=== PATIENT | male | born 1960 | race Caucasian/White ===

== ENCOUNTER 2017-11-12 18:21 | Emergency (ER) | payer BC, OTHER ==
[2017-11-12] MEDS ORDERED: Ketorolac 0.5% Ophth Soln 5 ML Bottle EYERT ONE (19:07)
[2017-11-12] MEDS ORDERED: Ciprofloxacin 0.3% Ophth Soln 2.5 ML Bottle EYERT ONE (19:08)
[2017-11-12] MEDS ORDERED: Acetaminophen/oxyCODONE 325-5 MG Tab PO ONE (19:09)
--- NOTE | 2017-11-12 19:17 | EDM.PDOC ---
ED HPI GENERAL MEDICAL PROBLEM - General Chief Complaint: Eye Problems Stated Complaint: EYE PROBLEMS Time Seen by Provider: 11/12/17 18:55 Source of Information: Reports: Patient, Family (spouse) History Limitations: Reports: No Limitations - History of Present Illness INITIAL COMMENTS - FREE TEXT/NARRATIVE: 57-year-old male presents the ED with severe right eye pain with excessive tearing since about 1400 hrs. today. 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 a form of ultraviolet radiation exposure and grinding metal. He was using the plasma cutter about 10:00 this morning. He didn't believe that he get any foreign body in his eye. I start to hurt anterior excessively around 1400 hrs. and is only continued to worsen since that time. He has not worked contact lenses or eyeglasses except for reading. Pain is described as burning sharp stabbing and severely photophobic. He has rinsed his eye with eye wash at work 3 with some transient improvement. Never did identify any foreign bodies or remove anything from the eye. Onset: Today Onset Date: 11/12/17 Onset Time: 14:00 Duration: Hour(s):, Getting Worse Location: Reports: Face Quality: Reports: Burning, Sharp, Stabbing, Other Severity: Severe (Rates pain 10 out of 10.) Improves with: Reports: Rest Worsens with: Reports: Other (Keeping the eye closed. Exposure to light) Context: Reports: Other (Exposure to ultraviolet radiation well using a plasma cutter.). Denies: Activity, Exercise, Lifting, Sick Contact, Trauma Associated Symptoms: Reports: No Other Symptoms. 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 [No Known Home Meds] 11/12/17 [History] Past Medical History HEENT History: Reports: Cataract Cardiovascular History: Reports: Hypertension, Pacemaker - Past Surgical History HEENT Surgical History: Reports: Cataract Surgery, LASIK Social & Family History - Tobacco Use Smoking Status *Q: Never Smoker Second Hand Smoke Exposure: Yes - Caffeine Use Caffeine Use: Reports: None - Recreational Drug Use Recreational Drug Use: No - Living Situation & Occupation Living situation: Reports: Occupation: Employed ED ROS GENERAL - Review of Systems Review Of Systems: See Below Constitutional: Reports: No Symptoms HEENT: Reports: Eye Pain (Severe right side with excessive tearing. Started about 1400 hrs. this afternoon), Other (Nasal congestion from excessive tearing. ) Respiratory: Reports: No Symptoms Cardiovascular: Reports: No Symptoms Endocrine: Reports: No Symptoms GI/Abdominal: Reports: No Symptoms : Reports: Other (Nocturia 2) Musculoskeletal: Reports: Back Pain Skin: Reports: No Symptoms Neurological: Reports: No Symptoms (Occasional problems with low back pain) Psychiatric: Reports: No Symptoms Hematologic/Lymphatic: Reports: No Symptoms Immunologic: Reports: No Symptoms ED EXAM GENERAL W FULL EYE - Physical Exam Exam: See Below Exam Limited By: No Limitations General Appearance: Alert, Moderate Distress (Speaks with right eye completely closed and it's been obviously excessively tearing.) Eye Exam: Right Eye: Conjunctival Injection (Moderate), Corneal Abrasion (Large C square superficial abrasion mid cornea), Bilateral Eye: PERRL, Other ( Excessive pitting of the cornea from ultraviolet radiation almost the entire lower two thirds of the cornea is involved particularly laterally.) Eyelids: Right: Lid Everted for Exam (No foreign body identified. Slightly erythematous.) Conjunctiva & Sclera: Right: Injected (Moderately diffusely injected) Extraocular Movements: Bilateral: Intact Pupils: Normal Accommodation Pupillary Size: Bilateral: 5 mm Pupillary Reaction: Bilateral: Brisk Anterior Chamber: Right: Normal Appearance Course - Vital Signs Last Recorded V/S: Last Vital Signs Temp 36.8 C 11/12/17 18:33 Pulse 71 11/12/17 18:33 Resp 18 11/12/17 18:33 BP 136/94 H 11/12/17 18:33 Pulse Ox 98 11/12/17 18:33 - Orders/Labs/Meds Meds: Medications Discontinued Medications Generic Name Dose Route Start Last Admin Trade Name Freq PRN Reason Stop Dose Admin Ciprofloxacin 2.5 ml 11/12/17 19:08 11/12/17 19:13 Ciloxan 0.3% Ophth Soln EYERT 11/12/17 19:09 2 drop ONETIME ONE Administration Ketorolac Tromethamine 2.5 ml 11/12/17 19:07 11/12/17 19:15 Acular 0.5% Ophth Soln EYERT 11/12/17 19:08 2 drop ONETIME ONE Administration Oxycodone/Acetaminophen 2 tab 11/12/17 19:09 11/12/17 19:13 Percocet 325-5 Mg PO 11/12/17 19:10 2 tab ONETIME ONE Administration - Radiology Interpretation Free Text/Narrative:: 57-year-old male presents to the ED with painful right eyes since about 1400 hrs. today. 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 Did never did identify any foreign bodies in his eye. He was doing wearing protective eye glasses. He usually only uses glasses to read. On examination the conjunctiva is markedly and diffusely injected. No foreign bodies were identified on a eversion of the upper lid or lower lid and no corneal foreign bodies identified either. He received complete relief of pain after proparacaine topical eyedrops were applied. Slit-lamp examination reveals severe pitting of the lower two thirds of the cornea particularly laterally compatible with ultraviolet radiation vázquez. There is also a large central 7 mm x 7 mm square superficial corneal abrasion from rubbing the eyes excessively. Treatment will be ketorolac eyedrops 2 drops to the right eye every 6 hours as needed for the next 24 hours to relieve pain and inflammation. Cipro eyedrops 2 drops every 8 hours 2 days to prevent secondary infection. Percocet tabs 2 5/3 /25 milligrams strength at bedtime tonight to help him sleep. I will be double patched closed and taken off only to apply drops every 6 hours. Note given to excuse him from the workplace tomorrow. This I will take at least 24 hours to completely heal. Departure - Departure Time of Disposition: 19:09 Disposition: Home, Self-Care 01 Condition: Fair Clinical Impression: Exposure to welding light (arc), initial encounter Corneal abrasion Qualifiers: Encounter type: initial encounter Laterality: right Qualified Code(s): S05.01XA - Injury of conjunctiva and corneal abrasion without foreign body, right eye, initial encounter - Discharge Information Instructions: Corneal Abrasion, [id number] Referrals: PCP,None [Primary Care Provider] - Forms: ED Department Discharge, ED Return to Work/School Form Care Plan Goals: Evaluation in the ED tonight in regards to painful Rt eye . Examination reveals welding flash vázquez to the Rt cornea with an associated large superficial corneal abrasion. Treatment is to use Ketoralac eye drops -- 2 drops to the Rt eye every 6hrs as needed for pain relief. Likely will need for about 24 hrs. Use antibiotic drops Cipro --2 drops to the Rt eye every 8 hrs for 2 days to prevent ay secondary infection. Eye to be patched closed for the enxt 18 hrs. May then remove. Eye will be sensitive to the light for another day or so. Suggest off work tomorrow to allow the cornea to heal. usually takes about 24hrs or so. Take Percocet tabs x2 at bedtime with a little food in your stomach. Return to eye doctor if not completely back to normal in 36hrs time.
== END 2017-11-12 19:28 | disposition home or self-care (01) ==
LOC: JD.ED 18:21
DX: S05.01XA Injury of conjunctiva and corneal abrasion without foreign body, right eye, initial encounter (principal); I10 Essential (primary) hypertension; W89.0XXA Exposure to welding light (arc), initial encounter
CPT/HCPCS: 99283; A9270

== ENCOUNTER 2021-06-15 10:47 | Emergency (ER) | payer OTHER ==
--- NOTE | 2021-06-15 11:35 | EDM.PDOC ---
ED HPI GENERAL MEDICAL PROBLEM - General Chief Complaint: Respiratory Problem Stated Complaint: POST COVID LIGHT HEADED\SHAKING Time Seen by Provider: 06/15/21 11:00 Source of Information: Reports: Patient, Family ([id number]) History Limitations: Reports: No Limitations - History of Present Illness INITIAL COMMENTS - FREE TEXT/NARRATIVE: Mr. Wang is a very pleasant 69-year-old gentleman who now presents to the ED stating that he was diagnosed with COVID-19 on 05/26/2021. He did not receive any treatment until 10 days later, when he was prescribed a 5-day course of i vermectin. He states that he still has an occasional cough productive of yellowish sputum, and dyspnea on exertion. He saw his PCP this past 06/07/2021, and was prescribed an albuterol MDI and a 5-day course of dexamethasone (he does not recall the dosage). He states that he took the albuterol a few times early after being prescribed it, but none this past 06/13/2021, once yesterday, and none today. The patient states that he developed shakiness, predominantly at nighttime and in the morning, but not during the day, right after starting the dexamethasone, and he sometimes feels lightheaded whenever he is feels shaky, including around 08:45 this morning. He does not feel shaky or lightheaded at this time. Here in the ED, the patient is found to be hemodynamically stable, afebrile, saturating 93% on room air. He appears to be slightly anxious, but in no acute distress. The patient denies having a recent fever, chills, sore throat, ear pain, nasal or sinus congestion, chest pain, palpitations, nausea, vomiting, constipation, diarrhea, abdominal pain, urinary symptoms, recent weight gain or weight loss, recent bloody bowel movements or black bowel movements, recent joint aches, headaches, or rashes. The patient's PCP is Dr. Bhaskar Pepper. His cardiology midlevel is [facility]. He has not received a COVID vaccination, nor an influenza vaccination this season. - Related Data Allergies Allergy/AdvReac Type Severity Reaction Status Date / Time No Known Allergies Allergy Verified 11/12/17 18:36 Home Meds: Home Meds . [No Known Home Meds] 11/12/17 [History] Past Medical History Cardiovascular History: Reports: Other (See Below) (3rd degree AVB, s/p pacer) - Infectious Disease History Infectious Disease History: Reports: Novel Coronavirus (dx'd 05/26/2021) - Past Surgical History HEENT Surgical History: Reports: Cataract Surgery (bilateral), LASIK (bilateral), Oral Surgery (dental extractions) Cardiovascular Surgical History: Reports: Pacer Social & Family History - Tobacco Use Tobacco Use Status *Q: Never Tobacco User - Caffeine Use Caffeine Use: Reports: None - Alcohol Use Alcohol Use History: Yes Alcohol Use Frequency: Socially - Recreational Drug Use Recreational Drug Use: No - Living Situation & Occupation Living situation: Reports: , with Spouse Occupation: Retired ED ROS GENERAL - Review of Systems Review Of Systems: Comprehensive ROS is negative, except as noted in HPI. ED EXAM, GENERAL - Physical Exam Exam: See Below Exam Limited By: No Limitations General Appearance: Alert, WD/WN, No Apparent Distress Eye Exam: Bilateral Eye: EOMI, Normal Inspection Ears: Normal External Exam, Hearing Grossly Normal Nose: Normal Inspection Throat/Mouth: Normal Inspection, Normal Lips, Normal Voice, No Airway Compromise Head: Atraumatic, Normocephalic Neck: Normal Inspection, Full Range of Motion Respiratory/Chest: No Respiratory Distress, Lungs Clear, Normal Breath Sounds, No Accessory Muscle Use, Other (Left chest pacer palpable). No: Decreased Breath Sounds, Crackles, Rhonchi, Wheezing, Stridor, Prolonged Expiration Cardiovascular: Normal Peripheral Pulses, Regular Rate, Rhythm, No Edema, No Gallop, No JVD, No Murmur, No Rub Peripheral Pulses: 3+: Radial (L), Radial (R) GI/Abdominal: Normal Bowel Sounds, Soft, Non-Tender, No Organomegaly, No Distention, No Abnormal Bruit, No Mass Back Exam: Normal Inspection, Full Range of Motion, NT Extremities: Normal Inspection, Normal Range of Motion, No Pedal Edema, Normal Capillary Refill Neurological: Alert, Oriented, Normal Cognition, No Motor/Sensory Deficits Psychiatric: Normal Affect Skin Exam: Warm, Dry, Intact, Normal Color, No Rash Course - Vital Signs Last Recorded V/S: Last Vital Signs Temp 36.6 C 06/15/21 11:03 Pulse 83 06/15/21 11:03 Resp 16 06/15/21 11:03 BP 113/82 06/15/21 11:03 Pulse Ox 93 L 06/15/21 11:03 Orthostatic Blood Pressure [ 112/82 Standing] Orthostatic Blood Pressure [ 106/78 Supine] - Orders/Labs/Meds Orders: Active Orders 24 hr Category Date Time Status Orthostatic Vital Signs [RC] STAT Care 06/15/21 11:25 Active Sodium Chloride 0.9% [Normal Saline] 1,000 ml Med 06/15/21 12:00 Active IV ASDIRECTED Sodium Chloride 0.9% [Normal Saline] 100 ml Med 06/15/21 12:15 Active IV ASDIRECTED Sodium Chloride 0.9% [Saline Flush] Med 06/15/21 12:15 Active 10 ml FLUSH ONETIME PRN Medication Orders Sodium Chloride (Normal Saline) 1,000 mls @ 150 mls/hr IV ASDIRECTED PONCE Last Admin: 06/15/21 13:56 Dose: 150 mls/hr Documented by: GLEN Sodium Chloride (Normal Saline) 100 mls @ 75 mls/hr IV ASDIRECTED [facility] Sodium Chloride (Sodium Chloride 0.9% 10 Ml Syringe) 10 ml FLUSH ONETIME PRN PRN Reason: IV FLUSH Last Admin: 06/15/21 12:41 Dose: 10 ml Documented by: DREW Labs: Laboratory Tests 06/15/21 06/15/21 06/15/21 Range/Units 11:08 11:08 11:08 WBC 8.88 (4.23-9.07) K/mm3 RBC 5.12 (4.63-6.08) M/mm3 Hgb 15.7 (13.7-17.5) gm/dl Hct 46.0 (40.1-51.0) % MCV 89.8 (79.0-92.2) fl MCH 30.7 (25.7-32.2) pg MCHC 34.1 (32.2-35.5) g/dl RDW Std Deviation 43.0 (35.1-43.9) fL Plt Count 314 (163-337) K/mm3 MPV 8.6 L (9.4-12.3) fl Neutrophils % (Manual) 77 H (40-60) % Band Neutrophils % 3 (0-10) % Lymphocytes % (Manual) 11 L (20-40) % Atypical Lymphs % 0 % Monocytes % (Manual) 7 (2-10) % Eosinophils % (Manual) 2 (0.8-7.0) % Basophils % (Manual) 0 L (0.2-1.2) Platelet Estimate Adequate Plt Morphology Comment Normal RBC Morph Comment Normal D-Dimer, Quantitative 1.33 H (0.19-0.50) mg/L Sodium 138 (136-145) mEq/L Potassium 3.8 (3.5-5.1) mEq/L Chloride 105 (98-107) mEq/L Carbon Dioxide 23 (21-32) mEq/L Anion Gap 13.8 (5-15) BUN 10 (7-18) mg/dL Creatinine 1.0 (0.7-1.3) mg/dL Est Cr Clr Drug Dosing 75.60 mL/min Estimated GFR (MDRD) > 60 (>60) mL/min BUN/Creatinine Ratio 10.0 L (14-18) Glucose 97 (70-99) mg/dL Calcium 8.6 (8.5-10.1) mg/dL Magnesium 2.0 (1.8-2.4) mg/dL Total Bilirubin 0.7 (0.2-1.0) mg/dL AST 21 (15-37) U/L ALT 59 (16-63) U/L Alkaline Phosphatase 50 (46-116) U/L Troponin I < 0.017 (0.00-0.056) ng/mL C-Reactive Protein 0.7 (<1.0) mg/dL NT-Pro-B Natriuret Pep (0-125) pg/mL Total Protein 7.1 (6.4-8.2) g/dl Albumin 3.3 L (3.4-5.0) g/dl Globulin 3.8 gm/dL Albumin/Globulin Ratio 0.9 L (1-2) TSH 3rd Generation 1.151 (0.358-3.74) uIU/mL Influenza Type A RNA (NEGATIVE) Influenza Type B RNA (NEGATIVE) SARS-CoV-2 RNA (ARIANNA) (NEGATIVE) 06/15/21 06/15/21 Range/Units 11:08 11:35 WBC (4.23-9.07) K/mm3 RBC (4.63-6.08) M/mm3 Hgb (13.7-17.5) gm/dl Hct (40.1-51.0) % MCV (79.0-92.2) fl MCH (25.7-32.2) pg MCHC (32.2-35.5) g/dl RDW Std Deviation (35.1-43.9) fL Plt Count (163-337) K/mm3 MPV (9.4-12.3) fl Neutrophils % (Manual) (40-60) % Band Neutrophils % (0-10) % Lymphocytes % (Manual) (20-40) % Atypical Lymphs % % Monocytes % (Manual) (2-10) % Eosinophils % (Manual) (0.8-7.0) % Basophils % (Manual) (0.2-1.2) Platelet Estimate Plt Morphology Comment RBC Morph Comment D-Dimer, Quantitative (0.19-0.50) mg/L Sodium (136-145) mEq/L Potassium (3.5-5.1) mEq/L Chloride (98-107) mEq/L Carbon Dioxide (21-32) mEq/L Anion Gap (5-15) BUN (7-18) mg/dL Creatinine (0.7-1.3) mg/dL Est Cr Clr Drug Dosing mL/min Estimated GFR (MDRD) (>60) mL/min BUN/Creatinine Ratio (14-18) Glucose (70-99) mg/dL Calcium (8.5-10.1) mg/dL Magnesium (1.8-2.4) mg/dL Total Bilirubin (0.2-1.0) mg/dL AST (15-37) U/L ALT (16-63) U/L Alkaline Phosphatase (46-116) U/L Troponin I (0.00-0.056) ng/mL C-Reactive Protein (<1.0) mg/dL NT-Pro-B Natriuret Pep 43 (0-125) pg/mL Total Protein (6.4-8.2) g/dl Albumin (3.4-5.0) g/dl Globulin gm/dL Albumin/Globulin Ratio (1-2) TSH 3rd Generation (0.358-3.74) uIU/mL Influenza Type A RNA Negative (NEGATIVE) Influenza Type B RNA Negative (NEGATIVE) SARS-CoV-2 RNA (ARIANNA) Negative (NEGATIVE) Meds: Medications Generic Name Dose Route Start Last Admin Trade Name Freq PRN Reason Stop Dose Admin Sodium Chloride 1,000 mls @ 150 mls/hr 06/15/21 12:00 06/15/21 13:56 Normal Saline IV 150 mls/hr ASDIRECTED PONCE Administration Sodium Chloride 100 mls @ 75 mls/hr 06/15/21 12:15 Normal Saline IV ASDIRECTED PONCE Sodium Chloride 10 ml 06/15/21 12:15 06/15/21 12:41 Sodium Chloride 0.9% 10 Ml Syringe FLUSH 10 ml ONETIME PRN Administration IV FLUSH Discontinued Medications Generic Name Dose Route Start Last Admin Trade Name Freq PRN Reason Stop Dose Admin Iopamidol 100 ml 06/15/21 12:15 06/15/21 12:41 Iopamidol 755 Mg/Ml 100 Ml Bottle IVPUSH 06/15/21 12:16 100 ml ONETIME ONE Administration Iopamidol 50 ml 06/15/21 12:15 06/15/21 12:41 Iopamidol 755 Mg/Ml 50 Ml Bottle IVPUSH 06/15/21 12:16 50 ml ONETIME ONE Administration - Re-Assessments/Exams Free Text/Narrative Re-Assessment/Exam: 06/15/21 11:28 I have ordered a work-up that includes orthostatics, several blood tests, a swab for the SARS-CoV-2 virus and influenza A + B, and a chest x-ray. 06/15/21 11:47 The patient is not orthostatic. Two-view chest radiograph reviewed. The cardiac silhouette is within normal limits. No pulmonary vascular congestion. No pleural effusions. Bilateral hazy infiltrates, worse on the left than the right, consistent with COVID pneumonia. There is an approximately 5 cm x 3.5 cm oval area of lucency with an air-fluid level at the inferior aspect in the mid-right lung, concerning for an abscess. No pneumothorax. Left-sided 2 chamber pacer noted. Formal read per the Radiologist pending. Based on the above, I have ordered a CT of the chest with IV contrast, along with IV fluid. 06/15/21 11:55 Chest x-ray findings and my ordering of the CT and IV fluid discussed with the patient and his [id number]. 06/15/21 13:42 The patient's CMP is unremarkable. His magnesium level is within normal limits at 2.0. His TSH is within normal limits at 1.151. His CRP is within normal limits at 0.7. His troponin is undetectably low. His pro-BNP is within normal limits at 43. His swab for the SARS-CoV-2 virus and influenza A + B viruses is negative for all. Results of his CBC and D-dimer are still pending. CT angiogram of the chest with IV contrast is read by Dr. Wyman as: 1. No findings of pulmonary embolism. 2. Small cysts within both kidneys as well as within the liver. 3. Pneumatocele within the right upper chest measuring 5.2 cm containing an air-fluid level. 4. Diffuse parenchymal densities within both sides of the chest most likely representing residual COVID pneumonia. 06/15/21 14:42 The patient's CBC is unremarkable. His D-dimer is elevated at 1.33. 06/15/21 14:48 Test results discussed with the patient and his [id number]. As above, today's work-up is remarkable for an elevated D-dimer, but the CT angiogram of his chest is negative for a pulmonary embolus, and ED lucency with air-fluid level seen in his right lung is due to pneumocele, which will likely resolve on its own, and does not require specific treatment. His dyspnea on exertion is most certainly due to lung damage from COVID-19 pneumonia. I am unable to tell him how long it will last; it is feasible that it may be permanent. The patient expressed understanding. Departure - Departure Time of Disposition: 14:49 Disposition: Home, Self-Care 01 Condition: Good Clinical Impression: Post-COVID chronic dyspnea, Pneumatocele of lung - Discharge Information *PRESCRIPTION DRUG MONITORING PROGRAM REVIEWED*: Not Applicable *COPY OF PRESCRIPTION DRUG MONITORING REPORT IN PATIENT CARLO: Not Applicable Referrals: Bhaskar Pepper MD [Primary Care Provider] - Diamante Block PA-C [Ordering Only Provider] - Forms: ED Department Discharge Additional Instructions: You were seen in the emergency room for 2 to 3 weeks of shortness of breath with exertion, and occasional cough, then feeling shaky, and lightheaded. Work-up in the ER included positional blood pressure checks, numerous blood tests, a swab for the SARS-CoV-2 virus and influenza viruses, a chest x-ray, and a CT angiogram of your chest with IV contrast. Your work-up showed that you have a pneumatocele (an air pocket) in your right lung. No specific treatment is needed. It will most likely go away on its own. Your chest x-ray and CT exam show that you have residual abnormalities from prior COVID-19 pneumonia. Your shortness of breath with exertion is most likely due to this. It is impossible to say how long this will last. Hopefully will resolve, although it is possible that it may be permanent. You may resume your usual activities as tolerated. If any other problems, please do not hesitate to return to the ER. Sepsis Event Note (ED) - Evaluation Sepsis Screening Result: No Definite Risk - Focused Exam Vital Signs: Vital Signs Temp Pulse Resp BP Pulse Ox 06/15/21 11:03 36.6 C 83 16 113/82 93 L - My Orders Last 24 Hours: My Active Orders 06/15/21 11:25 Orthostatic Vital Signs [RC] STAT 06/15/21 12:00 Sodium Chloride 0.9% [Normal Saline] 1,000 ml IV ASDIRECTED 06/15/21 12:15 Sodium Chloride 0.9% [Normal Saline] 100 ml IV ASDIRECTED Sodium Chloride 0.9% [Saline Flush] 10 ml FLUSH ONETIME PRN - Assessment/Plan Last 24 Hours: My Active Orders 06/15/21 11:25 Orthostatic Vital Signs [RC] STAT 06/15/21 12:00 Sodium Chloride 0.9% [Normal Saline] 1,000 ml IV ASDIRECTED 06/15/21 12:15 Sodium Chloride 0.9% [Normal Saline] 100 ml IV ASDIRECTED Sodium Chloride 0.9% [Saline Flush] 10 ml FLUSH ONETIME PRN
[2021-06-15] MEDS ORDERED: Sodium Chloride 0.9% 1,000 ML IV SCH (12:00)
--- NOTE | 2021-06-15 12:01 | CR ---
Chest: PA and lateral views of the chest were obtained. Comparison: No prior chest imaging is available. Pneumatocele containing an air-fluid level is seen within the right upper lung measuring 5.5 cm. Patchy areas of increased density are seen within both lungs. Heart size and mediastinum are within normal limits. Pacemaker is seen. Mild degenerative change is seen within the spine. Several slight compression deformities are seen within the spine which are likely old. Impression: 1. Patchy areas of increased density throughout both sides of the chest suspicious for persistent COVID pneumonia. 2. 5.5 cm or pneumatocele containing air-fluid levels within the right upper chest. 3. Pacemaker and other findings believed to be incidental as noted above. Diagnostic code #3
[2021-06-15] MEDS ORDERED: Iopamidol 755 MG/ML 50 ML Bottle IVPUSH ONE (12:15)
[2021-06-15] MEDS ORDERED: Iopamidol 755 Mg/ML 100 ML Bottle IVPUSH ONE (12:15)
[2021-06-15] MEDS ORDERED: Sodium Chloride 0.9% 10 ML Syringe FLUSH PRN (12:15)
[2021-06-15] MEDS ORDERED: Sodium Chloride 0.9% 100 ML IV SCH (12:15)
[2021-06-15 12:33] LABS: CORONAVIRUS COVID-19 NAA NEGATIVE (NEGATIVE)
--- NOTE | 2021-06-15 13:13 | CT ---
CT chest Technique: Multiple axial sections through the chest were obtained. Intravenous contrast was utilized. Study has been performed as a pulmonary angiogram protocol. Findings: Pulmonary arteries are well opacified. No filling defects are seen to indicate pulmonary embolism. Thoracic aorta shows no aneurysm. Mediastinum shows small lymph nodes which are within normal limits. No pericardial thickening is seen. Several small cysts are seen within both kidneys. Small cyst is noted next to the gallbladder within the liver. Patchy areas of increased density are seen on both sides of the chest. Pneumatocele is noted within the right upper lung measuring approximately 5.2 cm. This pneumatocele contains an air-fluid level. Bone window settings were reviewed which show scattered disc space narrowing and endplate spurring within the spine. No definite acute osseous abnormality is appreciated. Impression: 1. No findings of pulmonary embolism. 2. Small cysts within both kidneys as well as within the liver. 3. Pneumatocele within the right upper chest measuring 5.2 cm containing an air-fluid level. 4. Diffuse parenchymal densities within both sides of the chest most likely representing residual COVID pneumonia. Diagnostic code #3
== END 2021-06-15 15:00 | disposition home or self-care (01) ==
LOC: JD.ED 10:47
DX: J98.4 Other disorders of lung (principal); U09.9 Post COVID-19 condition, unspecified; Z20.822 Contact with and (suspected) exposure to COVID-19
CPT/HCPCS: 0240U; 36415; 71046; 71275; 80053; 83735; 83880; 84443; 84484; 85007; 85027; 85379; 86140; 99285; J7030; Q9967